=== PATIENT | male | born 1950 | race Asian ===

== ENCOUNTER → 2018-06-10 | Outpatient (CLI) | payer OTHER ==
--- NOTE | 2018-06-10 14:31 | RAD ---
Examination: 2 views of the right shoulder HISTORY: History of rotator cuff syndrome COMPARISON: None available. FINDINGS: The humerus head is within the glenoid. There is no acute fracture or dislocation identified IMPRESSION: No acute osseous findings Electronically signed by: Edgar Strauss MD (06/10/2018 2:28 PM) [facility]
== END | disposition home or self-care (01) ==
LOC: RAD 13:55
PROVIDERS: ATTEND Family Medicine
DX: S46.001D Unspecified injury of muscle(s) and tendon(s) of the rotator cuff of right shoulder, subsequent encounter (principal); X58.XXXD Exposure to other specified factors, subsequent encounter
CPT/HCPCS: 73030

== ENCOUNTER → 2018-07-26 | Outpatient (CLI) | payer MEDICAID, OTHER ==
[~2018-07-26] MED LIST: REGADENOSON 0.4 MG/5 ML DISP.SYRIN. IV ONE
--- NOTE | 2018-07-27 11:06 | RAD ---
MR#: [id number] Date of Study: 07/26/2018 Ordering Physician: ELIAZAR OLIVEROS, Referring Physician: DANYELL LARA Tech: JEREMY Gonzales, ARRT (R) (N) APPROVED REPORT Test Type: Pharmacological Stress Nurse/Tech: Ishan Farrell Test Indications: Chest pain Cardiac History: No known cardiac Medications: See EHR Medical History: See EHR Resting ECG: SR Resting Heart Rate: 72 bpm Resting Blood Pressure: 135/95mmHg Pretest Chest Pain: None Nurse/Tech Notes Lungs CTA. Pt attempted Treadmill Stress but was unable to reach target HR. Protocol switched to Leis can Consent: The procedure was explained to the patient in lay terms. Informed consent was witnessed. Rogelio eout was entered into [employer]. History and Stress Test performed by Graham Patterson R.N. Pharm. Details Pharmacologic stress testing was performed using 0.4mg per 5ml of regadenoson given intravenously ove r 7-10 seconds. Stress Symptoms No Chest pain or symptoms. POST EXERCISE Reason for Termination: Infusion complete Max HR: 96 bpm Max Blood Pressure: 138/89mmHg Blood Pressure response to exercise: Normal blood pressure response during stress. Chest Pain: No. Arrhythmia: No. ST Change: No. INTERPRETATION Stress EKG Conclusion: The resting EKG shows sinus rhythm with mild nonspecific ST segment changes. The stress EKG shows no significant changes from baseline. No EKG evidence of stress-induced ischemia. Imaging Protocol IMAGE PROTOCOL: Rest Tc-99m/stress Tc-99m 1 day Rest: Stress: Viability: Radiopharm.Tc99m UjetezbxeCr89f Sestamibi Riiz98rTd 33mCi Duration 16min. 13min. Img Date 07/26/2018 07/26/2018 Inj-Img [id number]. 60min. Rest Admin Site:IV - Right AntecubitalAdministrator:JEREMY Gonzales, ARRT (R)(N) Stress Admin Site: IV - Right AntecubitalAdministrator: RT Sandra (R)(N) STRESS DATA End Diast. Vol.60.0mlLVEDV index BSA38.0ml End Syst. Vol.16.0mlLVESV index BSA10.0ml Myocardial Mass86.0gEject. Xvaioabs49.0% Stress Scores Regional WT2.00Summed WT20.00 Regional WM0.00Summed WM2.00 LV Perfusion The stress scans showed no significant defects. The rest scans showed no significant defects. Nuclear imaging shows no reversible ischemia or infarct. [employer] Normal left ventricular systolic function with an ejection fraction of greater than 70%. LV Perf. Quant 17 Seg. SSS4.00 17 Seg. SRS1.00 17 Seg. SDS3.00 Stress Defect Extent (% LAD)0.00Rest Defect Extent (% LAD)0.00Rev. Defect Extent (% LAD)0.00 Stress Defect Extent (% LCX) 32.50Rest Defect Extent (% LCX)13.80Rev. Defect Extent (% LCX)28.80 Stress Defect Extent (% RCA)0.00Rest Defect Extent (% RCA)0.00Rev. Defect Extent (% RCA)0.00 Stress Defect Extent (% CHRISTI)6.10Rest Defect Extent (% CHRISTI)2.40Rev. Defect Extent (% CHRISTI)5.00 Conclusion 1. No EKG evidence of stress-induced ischemia. 2. Nuclear imaging shows no reversible ischemia or infarct. 3. Normal left ventricular systolic function with an ejection fraction of greater than 70%. 4. Low risk Lexiscan nuclear stress test. Signed by : Eliazar Oliveros MD Electronically Approved : 07/27/2018 11:06:27
== END | disposition home or self-care (01) ==
LOC: NM 10:26
PROVIDERS: ATTEND Internal Medicine Cardiovascular Disease
DX: R07.9 Chest pain, unspecified (principal)
CPT/HCPCS: 78452; 93017; 96374; A9500; J2785